=== PATIENT | female | born 1980 | race Caucasian/White ===

== ENCOUNTER 2017-11-28 05:18 | Emergency (ER) | payer OTHER ==
[~2017-11-28] VITALS: Ht 162.6 cm; Wt 54.1 kg
--- NOTE | 2017-11-28 05:23 | ED.ADGEN ---
Past History Past Medical History: Seizure (AJCQUELINE JEWELL MD) Past Medical History Cavernous sinus hemangioma (JACQUELINE JEWELL MD) Past Surgical History Craniotomy for removal of cavernous sinus hemangioma (JACQUELINE JEWELL MD) Smoking: Non-smoker Alcohol Use: None Drug Use: None (JACQUELINE JEWELL MD) Adult General Chief Complaint Chief Complaint Hiccoughs, syncope, right-sided numbness (JACQUELINE JEWELL MD) HPI HPI Patient was well until 5 days ago when she had onset of hiccups that have been progressive and now intractable. She's had them constantly for the past 2 days. Tonight, she was having hiccups in the middle night, held her breath in the bathroom and passed out. She hit her head on the toilet and has had a headache since then. She's had no vomiting. Over the past week she also is noted right sided facial arm and leg numbness. She's had no weakness. She notes no visual changes or change in her voice. Patient has onset of seizures when she was 18 treated wit Tegretol. She had cavernous sinus hemangioma removed at age 20 with her seizures abating and Tegretol was stopped. (JACQUELINE JEWELL MD) Review of Systems Review of Systems Constitutional: Denies fever or chills Eyes: Denies change in visual acuity, redness, or eye pain HENT: Denies nasal congestion or sore throat Respiratory: Denies cough or shortness of breath Cardiovascular: With substernal chest tightness, denies palpitations GI: Denies abdominal pain, nausea, vomiting, bloody stools or diarrhea with frequent hiccoughs : Denies dysuria or hematuria Musculoskeletal: Denies back pain or joint pain Integument: Denies rash or skin lesions Neurologic: Denies headache, focal weakness or sensory changes Endocrine: Denies polyuria or polydipsia All other systems were reviewed and found to be within normal limits, except as documented in this note. (JACQUELINE JEWELL MD) Current Medications Current Medications Current Medications Medications (Trade) Dose Ordered Sig/Portia Start Time Stop Time Status Last Admin Dose Admin Chlorpromazine HCl 25 mg/Sodium Chloride 50 ml @ 100 mls/hr 1X ONCE 11/28/17 07:00 11/28/17 07:29 DC 11/28/17 07:11 100 MLS/HR Chlorpromazine HCl (Thorazine) 50 mg STK-MED ONCE 11/28/17 06:59 11/28/17 07:00 DC Lidocaine HCl (Viscous Lidocaine) 15 ml 1X ONCE 11/28/17 07:00 11/28/17 07:01 DC 11/28/17 06:41 15 ML Lorazepam (Ativan) 1 mg 1X ONCE 11/28/17 06:00 11/28/17 06:01 DC 11/28/17 05:57 1 MG Pantoprazole Sodium (Protonix Vial) 40 mg 1X ONCE 11/28/17 06:00 11/28/17 06:01 DC 11/28/17 05:59 40 MG Sodium Chloride 50 ml @ As Directed STK-MED ONCE 11/28/17 06:58 11/28/17 06:59 DC (MADISON COLIN MD) Allergies Allergies Allergies Coded Allergies Type Severity Reaction Last Updated Verified No Known Drug Allergies 11/28/17 No (MADISON COLIN MD) Physical Exam Physical Exam Constitutional: Well developed, well nourished, no acute distress, non-toxic appearance. With frequent hiccoughs HENT: Normocephalic, atraumatic, bilateral external ears normal, oropharynx moist, no oral exudates, nose normal. Eyes: PERRLA, EOMI, conjunctiva normal, no discharge. Neck: Normal range of motion, no tenderness, supple, no stridor. Cardiovascular:Heart rate regular rhythm, no murmur Lungs & Thorax: Bilateral breath sounds clear to auscultation Abdomen: Bowel sounds normal, soft, no tenderness, no masses, no pulsatile masses. Skin: Warm, dry, no erythema, no rash. Back: No tenderness, no CVA tenderness. Extremities: No tenderness, no cyanosis, no clubbing, ROM intact, no edema. Neurologic: Alert and oriented X 3, normal motor function, normal sensory function, no focal deficits noted. CN II-XII intact, no pronator drift bilaterally, strength 5/5 UE/LE symmetric bilaterally, sensation intact to light touch and position sense UE/LE symmetric bilaterally, gait normal. DTRs 2 + brachial and patellar equal and symmetric bilaterally. Patient has subjective right facial,arm and LE numbness. Psychologic: Affect normal, judgement normal, mood normal. (JACQUELINE JEWELL MD) Current Patient Data Vital Signs Vital Signs Date Time Temp Pulse Resp B/P (MAP) Pulse Ox O2 Delivery O2 Flow Rate FiO2 11/28/17 05:23 98.3 92 18 100 Room Air (MADISON COLIN MD) Lab Results Laboratory Tests Test 11/28/17 05:35 White Blood Count 9.4 x10^3/uL (4.0-11.0) Red Blood Count 4.88 x10^6/uL (3.50-5.40) Hemoglobin 14.7 g/dL (12.0-15.5) Hematocrit 43.5 % (36.0-47.0) Mean Corpuscular Volume 89 fL (79-100) Mean Corpuscular Hemoglobin 30 pg (25-35) Mean Corpuscular Hemoglobin Concent 34 g/dL (31-37) Red Cell Distribution Width 13.3 % (11.5-14.5) Platelet Count 267 x10^3/uL (140-400) Neutrophils (%) (Auto) 64 % (31-73) Lymphocytes (%) (Auto) 26 % (24-48) Monocytes (%) (Auto) 8 % (0-9) Eosinophils (%) (Auto) 2 % (0-3) Basophils (%) (Auto) 1 % (0-3) Neutrophils # (Auto) 6.0 x10^3uL (1.8-7.7) Lymphocytes # (Auto) 2.4 x10^3/uL (1.0-4.8) Monocytes # (Auto) 0.7 x10^3/uL (0.0-1.1) Eosinophils # (Auto) 0.2 x10^3/uL (0.0-0.7) Basophils # (Auto) 0.1 x10^3/uL (0.0-0.2) Sodium Level 142 mmol/L (136-145) Potassium Level 3.6 mmol/L (3.5-5.1) Chloride Level 105 mmol/L (98-107) Carbon Dioxide Level 26 mmol/L (21-32) Anion Gap 11 (6-14) Blood Urea Nitrogen 15 mg/dL (7-20) Creatinine 1.0 mg/dL (0.6-1.0) Estimated GFR (Cockcroft-Gault) 63.1 BUN/Creatinine Ratio 15 (6-20) Glucose Level 102 mg/dL (70-99) H Calcium Level 9.0 mg/dL (8.5-10.1) Total Bilirubin 1.8 mg/dL (0.2-1.0) H Aspartate Amino Transferase (AST) 33 U/L (15-37) Alanine Aminotransferase (ALT) 53 U/L (14-59) Alkaline Phosphatase 59 U/L (46-116) Troponin I Quantitative < 0.017 ng/mL (0-0.055) Total Protein 7.4 g/dL (6.4-8.2) Albumin 3.8 g/dL (3.4-5.0) Albumin/Globulin Ratio 1.1 (1.0-1.7) Serum Test, Qualitative Negative (NEG) (MADISON COLIN MD) Lab Results Laboratory Tests Test 11/28/17 05:35 White Blood Count 9.4 x10^3/uL (4.0-11.0) Red Blood Count 4.88 x10^6/uL (3.50-5.40) Hemoglobin 14.7 g/dL (12.0-15.5) Hematocrit 43.5 % (36.0-47.0) Mean Corpuscular Volume 89 fL (79-100) Mean Corpuscular Hemoglobin 30 pg (25-35) Mean Corpuscular Hemoglobin Concent 34 g/dL (31-37) Red Cell Distribution Width 13.3 % (11.5-14.5) Platelet Count 267 x10^3/uL (140-400) Neutrophils (%) (Auto) 64 % (31-73) Lymphocytes (%) (Auto) 26 % (24-48) Monocytes (%) (Auto) 8 % (0-9) Eosinophils (%) (Auto) 2 % (0-3) Basophils (%) (Auto) 1 % (0-3) Neutrophils # (Auto) 6.0 x10^3uL (1.8-7.7) Lymphocytes # (Auto) 2.4 x10^3/uL (1.0-4.8) Monocytes # (Auto) 0.7 x10^3/uL (0.0-1.1) Eosinophils # (Auto) 0.2 x10^3/uL (0.0-0.7) Basophils # (Auto) 0.1 x10^3/uL (0.0-0.2) Sodium Level 142 mmol/L (136-145) Potassium Level 3.6 mmol/L (3.5-5.1) Chloride Level 105 mmol/L (98-107) Carbon Dioxide Level 26 mmol/L (21-32) Anion Gap 11 (6-14) Blood Urea Nitrogen 15 mg/dL (7-20) Creatinine 1.0 mg/dL (0.6-1.0) Estimated GFR (Cockcroft-Gault) 63.1 BUN/Creatinine Ratio 15 (6-20) Glucose Level 102 mg/dL (70-99) H Calcium Level 9.0 mg/dL (8.5-10.1) Total Bilirubin 1.8 mg/dL (0.2-1.0) H Aspartate Amino Transferase (AST) 33 U/L (15-37) Alanine Aminotransferase (ALT) 53 U/L (14-59) Alkaline Phosphatase 59 U/L (46-116) Troponin I Quantitative < 0.017 ng/mL (0-0.055) Total Protein 7.4 g/dL (6.4-8.2) Albumin 3.8 g/dL (3.4-5.0) Albumin/Globulin Ratio 1.1 (1.0-1.7) Serum Test, Qualitative Negative (NEG) (JACQUELINE JEWELL MD) EKG EKG 05:56 ECG NSR @ 72 with RR' V1-V2 and no acute ST-T wave changes (JACQUELINE JEWELL MD) Radiology/Procedures Radiology/[place] [address] IMAGING REPORT Signed PATIENT: VOLODYMYR HOGAN S ACCOUNT: [id number] : 1980 LOCATION: ER AGE: 37 SEX: F EXAM STATUS: REG ER ORD. PHYSICIAN: JACQUELINE JEWELL MD REASON: Syncope with head injury today PROCEDURE: CT HEAD WO CONTRAST PQRS Compliance Statement: One or more of the following individualized dose reduction techniques were utilized for this examination: 1. Automated exposure control 2. Adjustment of the mA and/or kV according to patient size 3. Use of iterative reconstruction technique CT HEAD WITHOUT CONTRAST History: Syncope with head injury today Comparison: None. Procedure: Axial images are obtained of the head from the skull base through the vertex without IV contrast. Findings: There is small area of right frontal encephalomalacia near the convexity. The ventricles and sulci are normal for the patient's age. No mass-effect, midline shift, hemorrhage, extra-axial fluid collection, or obvious acute infarction is identified. Basilar cisterns are patent. Bone windows demonstrate no acute calvarial abnormality. There is small right convexity craniotomy. The visualized paranasal sinuses are clear. Mastoid air cells are well aerated. IMPRESSION: No acute intracranial abnormality. Electronically signed by: Sterling Araya MD (11/28/2017 5:56 AM) [facility] DICTATED AND SIGNED BY: STERLING ARAYA MD DATE: 11/28/17 0550 CC: JACQUELINE JEWELL MD; ROBE ROBERTS DO, MPH ~ (JACQUELINE JEWELL MD) Impressions: Evaluation of patient in ER showed 37-year-old female patient with a cough for several days. [facility] [place] [address] Jewell. Patient has several medication and several tenderness without improvement of her condition. Patient treated with viscous lidocaine and Thorazine and her hiccups was stopped. Prescription for oral Thorazine was given and patient instructed to follow-up with Dr. Nina per recommendation of Dr. Jewell. (MADISON COLIN MD) Course & Med Decision Making Course & Med Decision Making Emergency Department Course Patient presents with intractable hiccoughs, right sided numbness, syncope and chest pain DDx- GERD, gastritis, esophagitis, pneumonia, pleurisy, Arrhythmia, ACS, CVA, MS , brain tumor The patient was stable in the ED. Patient noted no relief form Protonix and Ativan. Case endorsed to Dr. Colin who will continue ED evaluation. 06:30 Case was discussed with Dr. Nina who agreed to see the patient in his office today at 9AM (JACQUELINE JEWELL MD) Final Impression Final Impression [] (JACQUELINE JEWELL MD) Dragon Disclaimer Dragon Disclaimer This electronic medical record was generated, in whole or in part, using a voice recognition dictation system. (JACQUELINE JEWELL MD) Departure Departure: Impression: Primary Impression: Hiccoughs Additional Impressions: Paresthesia of right arm and leg Facial paresthesia Disposition: HOME, SELF-CARE (At 0735) Condition: GUARDED Referrals: KWAME NINA MD Patient Instructions: Hiccups Additional Instructions: Drink plenty of liquids Follow-up with your primary care physician in 3-5 days Return to ER if not getting better Follow-up with Dr. Nina neurologist today Scripts Chlorpromazine Hcl (CHLORPROMAZINE HCL) 25 Mg Tablet 25 MG PO TID PRN for HICCUPS, #30 TAB Prov: MADISON COLIN MD 11/28/17 JACQUELINE JEWELL MD Nov 28, 2017 05:23 MADISON COLIN MD Nov 28, 2017 07:18
[2017-11-28 05:53] LABS: BASO # 0.1 x10^3/uL (0.0-0.2); BASO % 1 % (0-3); EOS # 0.2 x10^3/uL (0.0-0.7); EOS % 2 % (0-3); HEMATOCRIT 43.5 % (36.0-47.0); HEMOGLOBIN 14.7 g/dL (12.0-15.5); LYMPH # 2.4 x10^3/uL (1.0-4.8); LYMPH % 26 % (24-48); MEAN CORPUSCULAR HEMOGLOBIN 30 pg (25-35); MEAN CORPUSCULAR HGB CONC 34 g/dL (31-37); MEAN CORPUSCULAR VOLUME 89 fL (79-100); MONO # 0.7 x10^3/uL (0.0-1.1); MONO % 8 % (0-9); NEUT % 64 % (31-73); PLATELET COUNT 267 x10^3/uL (140-400); RED BLOOD COUNT 4.88 x10^6/uL (3.50-5.40); RED CELL DISTRIBUTION WIDTH 13.3 % (11.5-14.5); WHITE BLOOD COUNT 9.4 x10^3/uL (4.0-11.0)
[2017-11-28 05:59] LABS: PREG TEST PT QUAL NEGATIVE (NEG)
--- NOTE | 2017-11-28 05:59 | RAD ---
RS Compliance Statement: One or more of the following individualized dose reduction techniques were utilized for this examination: 1. Automated exposure control 2. Adjustment of the mA and/or kV according to patient size 3. Use of iterative reconstruction technique CT HEAD WITHOUT CONTRAST History: Syncope with head injury today Comparison: None. Procedure: Axial images are obtained of the head from the skull base through the vertex without IV contrast. Findings: There is small area of right frontal encephalomalacia near the convexity. The ventricles and sulci are normal for the patient's age. No mass-effect, midline shift, hemorrhage, extra-axial fluid collection, or obvious acute infarction is identified. Basilar cisterns are patent. Bone windows demonstrate no acute calvarial abnormality. There is small right convexity craniotomy. The visualized paranasal sinuses are clear. Mastoid air cells are well aerated. IMPRESSION: No acute intracranial abnormality. Electronically signed by: Sterling Araya MD (11/28/2017 5:56 AM) [facility]
[2017-11-28] MEDS ORDERED: IV NORMAL SALINE 1,000ML 1,000 ML IV ONE (06:00)
[2017-11-28] MEDS ORDERED: LORazepam 2 MG/ML VIAL IV ONE (06:00)
[2017-11-28] MEDS ORDERED: PANTOPRAZOLE IV 40 MG VIAL. IVP ONE (06:00)
[2017-11-28 06:02] LABS: ALBUMIN 3.8 g/dL (3.4-5.0); ALBUMIN/GLOBULIN RATIO 1.1 (1.0-1.7); GFR 63.1; POTASSIUM 3.6 mmol/L (3.5-5.1); TOTAL BILIRUBIN 1.8 mg/dL (0.2-1.0); TOTAL PROTEIN 7.4 g/dL (6.4-8.2)
--- NOTE | 2017-11-28 06:33 | RAD ---
CHEST PA LATERAL History: Hiccups x 5 days, syncopal episode today Comparison: None. Findings: The cardiomediastinal silhouette is normal. Pulmonary vasculature is normal. The lungs are clear. No pleural effusion or pneumothorax is seen. There is no acute bone abnormality. IMPRESSION: No acute cardiopulmonary process. Electronically signed by: Sterling Araya MD (11/28/2017 6:30 AM) [facility]
[2017-11-28] MEDS ORDERED: IV NORMAL SALINE 50ML 50 ML ONE (06:58)
[2017-11-28] MEDS ORDERED: chlorproMAZINE 50 MG/2 ML AMPUL IV ONE (06:59)
[2017-11-28] MEDS ORDERED: LIDOCAINE 2% VISCOUS 15 ML SOLUTION. SWSW ONE (07:00)
[2017-11-28] MEDS ORDERED: CHLO25TA4 PO (07:17)
[2017-11-28 07:45] VITALS: BP 119/70
--- NOTE | 2017-11-28 08:42 | EKG ---
[address] [address] Test Date: 2017-11-28 Test Time: 05:54:40 Pat Name: VOLODYMYR HOGAN Department: Room: Gender: F Electronic System Engineer: : 1980 Requested By: JACQUELINE CRAWFORD Order Number: [id number] Reading MD: Haseeb Patino MD Measurements Intervals [place] Rate: 72 P: 64 CO: 154 QRS: 65 QRSD: 96 T: 24 QT: 386 QTc: 424 Interpretive Statements SINUS RHYTHM Electronically Signed On 12-02-2017 11:52:21 CDT by Haseeb Patino MD
== END 2017-11-28 08:26 | disposition home or self-care (01) ==
LOC: ER 05:34
DX: R06.6 Hiccough (principal); R20.2 Paresthesia of skin; S09.90XA Unspecified injury of head, initial encounter; R55 Syncope and collapse; W22.8XXA Striking against or struck by other objects, initial encounter; Y93.89 Activity, other specified; Y92.89 Other specified places as the place of occurrence of the external cause; Y99.8 Other external cause status
CPT/HCPCS: 36415; 70450; 71046; 80053; 84484; 84703; 85025; 93005; 96361; 96365; 96375; 99285; C9113; J2060; J3230; J7030

== ENCOUNTER 2017-12-09 21:36 | Emergency (ER) | payer OTHER ==
[~2017-12-09] VITALS: Ht 165.1 cm; Wt 59.0 kg
[~2017-12-09 21:36] MED LIST: CHLO25TA4 PO
[2017-12-09 21:40] VITALS: BP 131/78
[2017-12-09] MEDS ORDERED: IV NORMAL SALINE 1,000ML 1,000 ML IV ONE (22:00)
--- NOTE | 2017-12-09 22:01 | PHYS DOC ---
Past History Past Medical History: Seizure Past Surgical History: Other Smoking: Non-smoker Alcohol Use: None Drug Use: None Adult General Chief Complaint Chief Complaint: COUGH HPI HPI 37-year-old female presents with 3 day history of cough, congestion, postnasal drip. She presents the ED today because she had some subjective feeling of shortness of breath with deep inspiration. She is to think she could get a full breath. This persisted most of the afternoon. She denies chest pain or diaphoresis. She admits that after arriving in the emergency room she is starting to feel a bit better. She did not have any difficulty speaking in full sentences at any time today. This did not limit her activities during the day. Patient does have seasonal allergies for which she usually takes cetirizine. She has not been taking her cetirizine because she is on baclofen. She is currently being worked up for a possible abnormal brain finding she is not believe this is related to her current symptoms. She denies fever or chills. She has not been coughing up any mucus. Review of Systems Review of Systems Constitutional: Denies fever or chills [] Eyes: Denies change in visual acuity, redness, or eye pain [] HENT: nasal congestion [] Respiratory: Dry cough with intermittent shortness of breath [] Cardiovascular: No additional information not addressed in HPI [] GI: Denies abdominal pain, nausea, vomiting, bloody stools or diarrhea [] : Denies dysuria or hematuria [] Musculoskeletal: Denies back pain or joint pain [] Integument: Denies rash or skin lesions [] Neurologic: Denies headache, focal weakness or sensory changes [] Endocrine: Denies polyuria or polydipsia [] All other systems were reviewed and found to be within normal limits, except as documented in this note. Current Medications Current Medications Current Medications Medications (Trade) Dose Ordered Sig/Portia Start Time Stop Time Status Last Admin Dose Admin Sodium Chloride 1,000 ml @ 1,000 mls/hr 1X ONCE 12/09/17 22:00 12/09/17 22:59 UNV Allergies Allergies Allergies Coded Allergies Type Severity Reaction Last Updated Verified No Known Drug Allergies 11/28/17 No Physical Exam Physical Exam Constitutional: Well developed, well nourished, no acute distress, non-toxic appearance. [] HENT: Normocephalic, atraumatic, bilateral external ears normal, oropharynx moist, no oral exudates, nose normal. [] Eyes: PERRLA, EOMI, conjunctiva normal, no discharge. [] Neck: Normal range of motion, no tenderness, supple, no stridor. [] Cardiovascular:Heart rate regular rhythm, no murmur [] Lungs & Thorax: Bilateral breath sounds clear to auscultation [] Abdomen: Bowel sounds normal, soft, no tenderness, no masses, no pulsatile masses. [] Skin: Warm, dry, no erythema, no rash. [] Back: No tenderness, no CVA tenderness. [] Extremities: No tenderness, no cyanosis, no clubbing, ROM intact, no edema. [] Neurologic: Alert and oriented X 3, normal motor function, normal sensory function, no focal deficits noted. [] Psychologic: Affect normal, judgement normal, mood normal. [] EKG EKG [] Radiology/Procedures Radiology/Procedures [] Impressions: Preliminary interpretation: No acute findings, no pleural effusion, no focal consolidation PROCEDURE: CHEST PA LATERAL CLINICAL INDICATION: post operative fever COMPARISON: 11/28/2017 FINDINGS: No pneumothorax identified. Cardiac and mediastinal contours unremarkable. No pulmonary consolidation or acute airspace disease. No acute osseous abnormalities identified. IMPRESSION: No pulmonary consolidation or acute airspace disease. Electronically signed by: Siddhartha Mederos DO (12/09/2017 11:06 PM) [facility] DICTATED AND SIGNED BY: SIDDHARTHA MEDEROS DO DATE: 12/09/17 7858 CC: KAELYN NAPIER DO; ROBE ROBERTS DO, MPH ~ Course & Med Decision Making Course & Med Decision Making Pertinent Labs and Imaging studies reviewed. (See chart for details) The patient's labs are unremarkable. Her chest x-rays negative for acute findings. The patient has had no further shortness of breath while in the ED. I' m unsure why she had subjective shortness of breath, but it does not appear to be pulmonary in nature. She is greatly reassured by these findings. She will follow up with her primary care physician as needed. She is stable for discharge at this time. [] Dragon Disclaimer Dragon Disclaimer This electronic medical record was generated, in whole or in part, using a voice recognition dictation system. Departure Departure: Referrals: ROBE ROBERTS DO, MPH (PCP) KAELYN NAPIER DO Dec 09, 2017 22:01
[2017-12-09 22:31] LABS: BASO # 0.1 x10^3/uL (0.0-0.2); BASO % 1 % (0-3); EOS # 0.2 x10^3/uL (0.0-0.7); EOS % 2 % (0-3); HEMATOCRIT 39.8 % (36.0-47.0); HEMOGLOBIN 13.4 g/dL (12.0-15.5); LYMPH # 3.2 x10^3/uL (1.0-4.8); LYMPH % 26 % (24-48); MEAN CORPUSCULAR HEMOGLOBIN 30 pg (25-35); MEAN CORPUSCULAR HGB CONC 34 g/dL (31-37); MEAN CORPUSCULAR VOLUME 88 fL (79-100); MONO % 9 % (0-9); NEUT # 7.6 x10^3uL (1.8-7.7); NEUT % 63 % (31-73); PLATELET COUNT 256 x10^3/uL (140-400); RED CELL DISTRIBUTION WIDTH 13.2 % (11.5-14.5); WHITE BLOOD COUNT 12.1 x10^3/uL (4.0-11.0)
[2017-12-09 22:45] LABS: ALBUMIN 3.7 g/dL (3.4-5.0); ALBUMIN/GLOBULIN RATIO 1.2 (1.0-1.7); CALCIUM 8.8 mg/dL (8.5-10.1); CREATININE 0.9 mg/dL (0.6-1.0); GFR 71.3; POTASSIUM 3.5 mmol/L (3.5-5.1); TOTAL BILIRUBIN 0.8 mg/dL (0.2-1.0); TOTAL PROTEIN 6.9 g/dL (6.4-8.2)
--- NOTE | 2017-12-09 23:10 | RAD ---
PROCEDURE: CHEST PA LATERAL CLINICAL INDICATION: post operative fever COMPARISON: 11/28/2017 FINDINGS: No pneumothorax identified. Cardiac and mediastinal contours unremarkable. No pulmonary consolidation or acute airspace disease. No acute osseous abnormalities identified. IMPRESSION: No pulmonary consolidation or acute airspace disease. Electronically signed by: Siddhartha Terrazas DO (12/09/2017 11:06 PM) [facility]
== END 2017-12-09 23:17 | disposition home or self-care (01) ==
LOC: ER 21:36
DX: R06.02 Shortness of breath (principal); R09.81 Nasal congestion; R05 Cough; R09.82 Postnasal drip
CPT/HCPCS: 36415; 71046; 80053; 85025; 99285